=== PATIENT | male | born 1975 | race Two or more races ===

== ENCOUNTER 2020-07-01 12:41 | Outpatient (CLI) | payer OTHER ==
[2020-07-02] MEDS ORDERED: NABUMETONE500 MG PO (10:59)
== END 2020-07-01 12:51 | disposition home or self-care (01) ==
LOC: EKG 12:41
PROVIDERS: ATTEND Surgery
DX: K40.90 Unilateral inguinal hernia, without obstruction or gangrene, not specified as recurrent (principal); Z01.818 Encounter for other preprocedural examination

== ENCOUNTER 2020-07-09 06:00 | Day surgery (SDC) | payer OTHER ==
[~2020-07-09 06:00] MED LIST: NABUMETONE500 MG PO
[2020-07-09] MEDS ORDERED: PERCOCET 5-3251 EACH PO (09:47)
[2020-07-09] MEDS ORDERED: COLACE100 MG PO (09:48)
[2020-07-09] MEDS ORDERED: NEURONTIN600 M1 PO (09:48)
== END 2020-07-09 10:50 | disposition home or self-care (01) ==
LOC: CIR.AMB 06:00
PROVIDERS: ATTEND Surgery
DX: K40.90 Unilateral inguinal hernia, without obstruction or gangrene, not specified as recurrent (principal)

== ENCOUNTER 2020-07-12 16:38 | Emergency (ER) | payer OTHER ==
[~2020-07-12] VITALS: Ht 172.7 cm; Wt 72.6 kg
[~2020-07-12 16:38] MED LIST changes: +COLACE100 MG PO; +NEURONTIN600 M1 PO; +PERCOCET 5-3251 EACH PO
== END 2020-07-13 14:24 | disposition home or self-care (01) ==
LOC: ER 16:38
DX: R33.8 Other retention of urine (principal); T88.59XA Other complications of anesthesia, initial encounter; R33.0 Drug induced retention of urine; Z03.818 Encounter for observation for suspected exposure to other biological agents ruled out; T41.295A Adverse effect of other general anesthetics, initial encounter; Y92.89 Other specified places as the place of occurrence of the external cause

== ENCOUNTER 2020-07-15 20:59 | Emergency (ER) | payer OTHER ==
[~2020-07-15] VITALS: Ht 172.7 cm; Wt 72.6 kg
[2020-07-16] MEDS ORDERED: LEVAQUIN500 MG PO (01:20)
== END 2020-07-16 01:35 | disposition home or self-care (01) ==
LOC: ER 20:59
DX: U07.1 COVID-19 (principal); N39.0 Urinary tract infection, site not specified; B95.7 Other staphylococcus as the cause of diseases classified elsewhere; B96.5 Pseudomonas (aeruginosa) (mallei) (pseudomallei) as the cause of diseases classified elsewhere; R31.0 Gross hematuria